=== PATIENT | male | born 1965 | race Caucasian/White ===

== ENCOUNTER 2018-03-01 11:25 | Emergency (ER) | payer OTHER ==
--- NOTE | 2018-03-01 13:01 | EDM.PDOC ---
ED HPI GENERAL MEDICAL PROBLEM - General Chief Complaint: Lower Extremity Injury/Pain Stated Complaint: HURT LEFT ANKLE Time Seen by Provider: 03/01/18 12:25 Source of Information: Reports: Patient History Limitations: Reports: No Limitations - History of Present Illness INITIAL COMMENTS - FREE TEXT/NARRATIVE: c/o L ankle pain on a roof, rolled ankle on uneven surface, fell on roof, some pain with walking , no previous injury off duty for next 5 days for weekend - Related Data Allergies Allergy/AdvReac Type Severity Reaction Status Date / Time No Known Allergies Allergy Verified 03/01/18 11:51 Home Meds: Home Meds Warfarin [Coumadin] 5 mg PO DAILY 08/09/15 [History] Past Medical History Cardiovascular History: Reports: Other (See Below) Other Cardiovascular History: hx of blood clot in the left leg. Musculoskeletal History: Reports: Other (See Below) Other Musculoskeletal History: has hx of blood clot at the left leg - on coumadin. Social & Family History - Family History Family Medical History: Noncontributory - Tobacco Use Smoking Status *Q: Current Every Day Smoker Years of Tobacco use: 30 Packs/Tins Daily: 0.5 - Caffeine Use Caffeine Use: Reports: Coffee, Soda - Alcohol Use Days Per Week of Alcohol Use: 1 Number of Drinks Per Day: 6 Total Drinks Per Week: 6 - Recreational Drug Use Recreational Drug Use: No Review of Systems - Review of Systems Review Of Systems: See Below Constitutional: Reports: No Symptoms Eyes: Reports: No Symptoms Ears: Reports: No Symptoms Nose: Reports: No Symptoms Mouth/Throat: Reports: No Symptoms Respiratory: Reports: No Symptoms Cardiovascular: Reports: No Symptoms GI/Abdominal: Reports: No Symptoms Genitourinary: Reports: No Symptoms Musculoskeletal: Reports: Other (L ankle pain) Skin: Reports: No Symptoms Neurological: Reports: No Symptoms Psychiatric: Reports: No Symptoms ED EXAM, GENERAL - Physical Exam Exam: See Below Exam Limited By: No Limitations General Appearance: Alert, WD/WN, No Apparent Distress Respiratory/Chest: No Respiratory Distress Cardiovascular: Regular Rate, Rhythm Extremities: Other (L ankle with 1+ swell over deltoid ligament, no ecchymosis, no bony tender, NT over ant/med joint line, XR neg) Course - Orders/Labs/Meds Orders: Active Orders 24 hr Category Date Time Status Ankle Min 3V Lt [CR] Stat Exams 03/01/18 11:31 Taken Departure - Departure Time of Disposition: 13:01 Disposition: Home, Self-Care 01 Condition: Good Clinical Impression: Grade 1 ankle sprain Qualifiers: Encounter type: initial encounter Laterality: left Qualified Code(s): S93.402A - Sprain of unspecified ligament of left ankle, initial encounter - Discharge Information Instructions: Ankle Sprain, Phase I Rehab-SportsMed, How to Use a Stirrup Ankle Brace Referrals: Jaxon Pena MD [Primary Care Provider] - Additional Instructions: For pain and inflammation, take acetaminophen 500 mg 2 tabs 4 times a day for 5 days, longer if needed. Use ice for 10-15 minutes 4 times today and tomorrow. Use Air Stirrup for next 2 weeks. Limit walking for the next 2 days. No work for 5 days. See your doctor in 1 week. Return to ED if you are feeling worse. - My Orders Last 24 Hours: My Active Orders 03/01/18 11:31 Ankle Min 3V Lt [CR] Stat - Assessment/Plan Last 24 Hours: My Active Orders 03/01/18 11:31 Ankle Min 3V Lt [CR] Stat
[2018-03-01 13:36] VITALS: BP 142/96
--- NOTE | 2018-03-02 09:40 | CR ---
INDICATION: Pain, rolled ankle. LEFT ANKLE: Three views of the left ankle were obtained 03/01/2018 and revealed the ankle mortise to appear intact without evidence of a fracture, dislocation, or other significant bone or joint abnormality. If an occult fracture site is suspected clinically, re-examination in 10-14 days may be helpful. MTDD
== END 2018-03-01 13:10 | disposition home or self-care (01) ==
LOC: FB.ED 11:25
DX: S93.402A Sprain of unspecified ligament of left ankle, initial encounter (principal); F17.210 Nicotine dependence, cigarettes, uncomplicated; Z79.01 Long term (current) use of anticoagulants; W17.89XA Other fall from one level to another, initial encounter
CPT/HCPCS: 73610-LT; 99283